=== PATIENT | female | born 1990 | race Caucasian/White ===

== ENCOUNTER 2025-02-08 09:24 | Emergency (ER) | payer OTHER ==
[~2025-02-08] VITALS: Ht 160 cm; Wt 113.4 kg
[2025-02-08] MEDS ORDERED: NAPROXEN250 M1 PO (10:55)
[2025-02-08] MEDS ORDERED: Cyclobenzaprine5 MG PO (10:55)
[2025-02-08] MEDS ORDERED: Acetaminophen 500 MG Tab PO ONE (10:55)
[2025-02-08] MEDS ORDERED: Cyclobenzaprine HCl 10 MG Tab PO ONE (10:55)
[2025-02-08] MEDS ORDERED: Ketorolac Tromethamine 15mg Vial IM ONE (10:55)
== END 2025-02-08 11:13 | disposition home or self-care (01) ==
LOC: ER 09:24
DX: M54.50 Low back pain, unspecified (principal); G89.29 Other chronic pain
CPT/HCPCS: 96372; 99283-25; A9270; J1885